=== PATIENT | male | born 1995 | race Caucasian/White ===

== ENCOUNTER 2017-01-27 16:47 | Emergency (ER) | payer BC ==
--- NOTE | 2017-01-28 16:05 | ER ---
ADMIT: 01/27/2017 RM/LOC: ER [facility] MR#: [id number] [address] [facility] [place], [place] [id number] MARTIR FOWLER LUISITO [address] [place] [address] Emergency Room Report SEX: M AGE: 21 : 1995 DATE: 01/27/2017 BRIEF ADDENDUM: Please see my T-sheet for complete review of systems, past medical history, and physical exam. CHIEF COMPLAINT: Injury and pain to right low back. HISTORY OF PRESENT ILLNESS: This is a 21-year-old, white male, who presents 2 days after he sustained an injury while riding a bull. States he was in [place], [place] when he got bucked off a bull and lost consciousness. He does not remember the event. Per reports, he landed primarily on his right side. States he has been using Motrin for the past 2 days with little relief of his pain, and he was brought here today by his mother as he continues to complain of pain. Denies any headache, change in vision, nausea, vomiting, weakness, or numbness in extremities. Primarily complains of right lower back pain which he describes as sharp. Has difficulty walking secondary to the pain. Better if he remains still. No chest pain, abdominal pain, loss of bowel or bladder, shortness of breath, cough, or headache. Otherwise, healthy. COURSE IN THE ER: GENERAL: The patient is seen and examined. He is afebrile and nontoxic. He is in no acute distress. HEENT: Eyes are equal and reactive to light. Extraocular muscles are intact. NECK: Soft and supple. He has a painless range of motion. No midline tenderness. CHEST: Nontender. Breath sounds are equal bilaterally. No wheezes, rales, or rhonchi. ABDOMEN: Soft and nontender. BACK: He does have some tenderness to palpation over the right low back primarily in the muscle belly. No vertebral tenderness. Does have muscle spasm with decreased range of motion. NEURO: He is alert and oriented x4. Motor is equal in lower extremities compared bilaterally. Sensation is intact in lower extremities compared bilaterally. SKIN: Warm, dry, and intact. I did proceed to get a routine lumbar spine series on him. No acute fractures and good alignment. He was also given Sheridan 5/325 two tabs p.o. which he states did relieve his pain. IMPRESSION: 1. Right low back contusion. ADMIT: 01/27/2017 RM/LOC: [facility] MR#: [id number] [facility] [address] [place], [place] [address] [facility] [address] [place] [id number] Emergency Room Report SEX: M AGE: 21 : 1995 2. Low back strain. DISPOSITION: The patient was provided with Sheridan 5/325 one to two tabs p.o. q.4 to 6 hours p.r.n. pain #26. We will dispense 6 from pharmacy this evening. Also gave him a script for Flexeril 5 mg tabs one tab p.o. every 8 hours p.r.n. muscle spasms #17 with two dispensed from our [facility] this evening. Told him to continue to stay active with gentle range of motion. Apply ice for the next couple days. He can use Motrin as needed for breakthrough pain. Caution when using the narcotics with Tylenol or driving. Activity as tolerated. Return with worsening signs or symptoms. Follow up with Dr. Francis as needed. Questions sought and answered to best of my ability and to the patient's satisfaction. Discharged in stable condition. VIN Devries / Renny Santo MD / jennifer JOB #: [id number] CC: Renny Santo MD, Attending Physician Hoang Leahy MD, Family Physician
== END 2017-01-27 19:37 | disposition home or self-care (01) ==
LOC: ER 16:47
DX: S39.012A Strain of muscle, fascia and tendon of lower back, initial encounter (principal); Z79.899 Other long term (current) drug therapy; V80.018A Animal-rider injured by fall from or being thrown from other animal in noncollision accident, initial encounter; Y93.I9 Activity, other involving external motion; Y92.89 Other specified places as the place of occurrence of the external cause